=== PATIENT | male | born 1950 | race Two or more races ===

== ENCOUNTER 2021-02-09 12:39 | Inpatient (IN) | payer MEDICARE, OTHER ==
[~2021-02-09] VITALS: Ht 175.3 cm; Wt 96.2 kg
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
[2021-02-09 14:08] LABS: BASOPHILS % (AUTO) 0.2 % (0.0-2.0); HEMATOCRIT 40 % (39-51); LYMPHOCYTES # (AUTO) 0.6 K/uL (0.8-4.8); LYMPHOCYTES % (AUTO) 6.4 % (20.0-44.0); MEAN CORPUSCULAR HGB CONC 33 g/dl (31.0-36.0); MEAN CORPUSCULAR VOLUME 92 fL (80-96); MONOCYTES # (AUTO) 0.5 K/uL (0.1-1.30); MONOCYTES % (AUTO) 5.1 % (2.0-12.0); NEUTROPHILS # (AUTO) 8.3 K/uL (1.8-8.9); NEUTROPHILS % (AUTO) 87.3 % (43.0-81.0); PLATELET COUNT (AUTO) 184 K/uL (150-450); RED BLOOD CELL COUNT(AUTO) 4.31 MIL/uL (4.5-6.0); WHITE BLOOD COUNT (AUTO) 9.5 K/uL (4.3-11.0)
--- NOTE | 2021-02-09 14:16 | NUR ---
CALLED YASHIRA FOR READ.
[2021-02-09 14:43] LABS: ALANINE AMINOTRANSFERASE 27 U/L (12-78); ALKALINE PHOSPHATASE 176 U/L (46-116); ASPARTATE AMINOTRANSFERASE 48 U/L (15-37); BILIRUBIN,DIRECT 0.2 mg/dL (0.0-0.2); BILIRUBIN,TOTAL 0.6 mg/dL (0.2-1.0); CALCIUM, SERUM 8.3 mg/dL (8.5-10.1); CARBON DIOXIDE 28 mmol/L (21-32); CHLORIDE 104 mmol/L (98-107); CREATININE 1.1 mg/dL (0.6-1.3); GLUCOSE 100 mg/dL (74-106); POTASSIUM 4.1 mmol/L (3.5-5.1); SODIUM SERUM 139 mmol/L (136-145); TOTAL PROTEIN, SERUM 6.5 g/dL (6.4-8.2); UREA NITROGEN, BLOOD 14 mg/dL (7-18)
[2021-02-09] MEDS ORDERED: SERT25TA PO (14:59)
[2021-02-09] MEDS ORDERED: TERA2CAP4 PO (14:59)
[2021-02-09] MEDS ORDERED: AMLO2.5T2 PO (14:59)
[2021-02-09] MEDS ORDERED: PANT40TA2 PO (14:59)
[2021-02-09] MEDS ORDERED: ZOLP5TAB2 PO (14:59)
[2021-02-09] MEDS ORDERED: METO25TA6 PO (14:59)
[2021-02-09] MEDS ORDERED: ALPR0.25 PO (14:59)
[2021-02-09] MEDS ORDERED: HYDR-4075 PO (14:59)
--- NOTE | 2021-02-09 15:06 | NUR ---
COVID TEST WAS COLLECTED AND SENT TO LAB.
--- NOTE | 2021-02-09 15:07 | NUR ---
CALLED PT [id number] [phone] TO DETERMINE IF PT IS ON BLOOD THINNERS. M
[2021-02-09] MEDS ORDERED: HYDR-3980 PO (15:20)
[2021-02-09] MEDS ORDERED: CHOL100062 PO (15:20)
[2021-02-09] MEDS ORDERED: LOSA100T31 PO (15:20)
[2021-02-09] MEDS ORDERED: FINA5TAB11 PO (15:20)
[2021-02-09] MEDS ORDERED: METO-358 PO (15:20)
[2021-02-09] MEDS ORDERED: TERA1CAP4 PO (15:20)
--- NOTE | 2021-02-09 15:26 | NUR ---
PT IS ON BLOOD THINNERS
--- NOTE | 2021-02-09 16:37 | NUR ---
RO[facility]
--- NOTE | 2021-02-09 16:41 | NUR ---
REPORT GIVEN TO NURSE PRIETO
[2021-02-09] MEDS ORDERED: ONDANSETRON HCL/PF 4 MG/2 ML VIAL IVP PRN (17:00)
[2021-02-09] MEDS ORDERED: MAGNESIUM HYDROXIDE 30 ML UDC PO PRN (17:00)
[2021-02-09] MEDS ORDERED: Z GUARD REMEDY 2 OZ OINT TP PRN (17:00)
[2021-02-09] MEDS ORDERED: MAG HYDROX/AL HYDROX/SIMETH 30 ML UDC PO PRN (17:00)
[2021-02-09] MEDS ORDERED: ACETAMINOPHEN 325 MG TABLET PO PRN (17:00)
[2021-02-09] MEDS ORDERED: ZOLPIDEM TARTRATE 5 MG TABLET PO PRN (17:00)
--- NOTE | 2021-02-09 17:20 | NUR ---
TELE NURSE NOTE PATIENT RECEIVED FROM ER BY NURSE AT AROUND 1715. PATIENT CAME ON A GURNEY TRANSFERRED TO BED. PATIENT IS ALERT AND ORIENTED X 1-2. PATIENT WITH REGULAR AND UNLABORED BREATHING ON ROOM AIR, TOLERATED WELL. NO SIGN AND SYMPTOMS OF DISTRESS NOTED. NO COMPLAIN OF PAIN OR DISCOMFORT AT THIS TIME. PATIENT IS ON BED REST. PATIENT NOTED TO HAVE WEAKNESS ON RIGHT SIDE OF THE BODY WITH NO SENSORY DEFICIT. IV ACCESS ON LEFT AC G20 ON SALINE LOCK. ACCESS PATENT AND INTACT. PATIENT IS ON TELE MONITOR READING AT SINUS RHYTHYM WITH HR ON 80'S. SAFETY PRECAUTIONS ENFORCED WITH BED LOCKED AND AT LOWEST POSITION SIDERAILS UP. CALL LIGHT WITHIN REACH AT ALL TIMES. WILL CONTINUE TO MONITOR.
[2021-02-09 17:52] VITALS: BP 128/76
--- NOTE | 2021-02-09 18:30 | NUR ---
CONCERT PROMOTER NOTE RECEIVED A CALL FROM DR. BEAN, PATIENT FOR MRI WITHOUT CONTRAST. PATIENT UNABLE TO SIGN AT THIS TIME BUT CONSENTED TO PROCEDURE AND WITNESSED BY NURSE BIGGS. PATIENT IS A POOR HISTORIAN AND MD IS AWARE. WILL CONTINUE TO MONITOR PATIENT.
--- NOTE | 2021-02-09 18:45 | NUR ---
TELE CLOSING NURSE NOTE PATIENT IS ALERT AND ORIENTED X 1-2. PATIENT WITH REGULAR AND UNLABORED BREATHING ON ROOM AIR, TOLERATED WELL. NO SIGN AND SYMPTOMS OF DISTRESS NOTED. NO COMPLAIN OF PAIN OR DISCOMFORT AT THIS TIME. PATIENT IS ON BED REST. PATIENT NOTED TO HAVE WEAKNESS ON RIGHT SIDE OF THE BODY WITH NO SENSORY DEFICIT. IV ACCESS ON LEFT AC G20 ON SALINE LOCK. ACCESS PATENT AND INTACT. PATIENT IS ON TELE MONITOR STILL READING AT SINUS RHYTHYM WITH HR ON 80'S. SAFETY PRECAUTIONS ENFORCED WITH BED LOCKED AND AT LOWEST POSITION SIDERAILS UP. CALL LIGHT WITHIN REACH AT ALL TIMES. WILL ENDORSE TO NEXT SHIFT FOR CONTINUITY OF CARE.
--- NOTE | 2021-02-09 19:34 | NUR ---
ANATOMIC PATHOLOGIST OPENING NOTES: RECEIVED PATIENT SLEEP IN BED COMFORTABLY,BED IN LOW POSITION CALL LIGHTS WITHIN REACH, NO COMPLAIN OF PAIN AND DISCOMFORT AT THIS TIME, PATIENT ON RA NO SOB OR ANY RESP DISTRESS OBSERVED, ON TELE MONITORING RS-66, WITH IV LINE AT LAC#20 SL, PATIENT KEPT CLEAN AND DRY, ALL NEEDS MET, WILL CONTINUE TO MONITOR.
[2021-02-09 20:05] VITALS: BP 134/73
[2021-02-10 01:10] VITALS: BP 156/82
[2021-02-10 04:37] VITALS: BP 142/70
[2021-02-10 06:38] LABS: BASOPHILS % (AUTO) 0.5 % (0.0-2.0); EOSINOPHILS % (AUTO) 2.2 % (0.0-6.0); HEMATOCRIT 38 % (39-51); HEMOGLOBIN 12.8 g/dL (13.5-17.5); LYMPHOCYTES # (AUTO) 0.7 K/uL (0.8-4.8); LYMPHOCYTES % (AUTO) 10.2 % (20.0-44.0); MEAN CORPUSCULAR HGB CONC 34 g/dl (31.0-36.0); MEAN CORPUSCULAR VOLUME 92 fL (80-96); MONOCYTES # (AUTO) 0.6 K/uL (0.1-1.30); MONOCYTES % (AUTO) 8.1 % (2.0-12.0); NEUTROPHILS # (AUTO) 5.4 K/uL (1.8-8.9); PLATELET COUNT (AUTO) 173 K/uL (150-450); RED BLOOD CELL COUNT(AUTO) 4.17 MIL/uL (4.5-6.0); WHITE BLOOD COUNT (AUTO) 6.9 K/uL (4.3-11.0)
[2021-02-10 06:43] LABS: ALBUMIN 2.7 g/dL (3.4-5.0); BILIRUBIN,TOTAL 0.8 mg/dL (0.2-1.0); CALCIUM, SERUM 8.1 mg/dL (8.5-10.1); MAGNESIUM 1.8 mg/dL (1.8-2.4); PHOSPHORUS 3.6 mg/dL (2.5-4.9); POTASSIUM 3.7 mmol/L (3.5-5.1); TOTAL PROTEIN, SERUM 6.2 g/dL (6.4-8.2)
--- NOTE | 2021-02-10 06:49 | NUR ---
UX SPECIALIST CLOSING NOTES: PATIENT SLEEP IN BED COMFORTABLY, BED IN LOW POSITION, CALL LIGHTS WITHIN REACH, NO COMPLAIN OF PAIN AND DISCOMFORT AT THIS TIME, PATIENT IS CONTINENT USING URINAL WITH IV LINE AT LAC #20 SL, A/O X1-2 WITH RIGHT SIDED HEMAPHERESIS, PATIENT ON TELE MONITORING SR-70, ON RA @98 PERCENT SATURATION, NO SOB WAS OBSERVED, PATIENT KEPT CLEAN AND DRY, ALL NEEDS MET, ENDORSE TO INCOMING SHIFT.
--- NOTE | 2021-02-10 07:22 | NUR ---
RN NOTES RECEIVED PATIENT IN BED, RESTING COMFORTABLY, DENIES ANY OF PAIN OR DISCOMFORT AT THIS TIME, PATIENT ON RA, NO SOB OR ANY RESPIRATORY DISTRESS OBSERVED, ON TELE MONITORING SR-65, WITH IV LINE AT LAC#20 SL, SAFETY MEASURES IN PLACE. BED ON ITS LOWEST AND LOCKED POSITION, CALL LIGHT PLACED WITHIN EASY REACH, SIDE RAILS UP, BED ALARM ON. WILL CONTINUE TO MONITOR.
[2021-02-10 08:00] VITALS: BP 137/90
[2021-02-10] MEDS: SERTRALINE HCL 25 MG TABLET PO SCH ×2 (08:33→09:00)
[2021-02-10] MEDS: AMLODIPINE BESYLATE 2.5 MG TABLET PO SCH (08:33)
[2021-02-10] MEDS: FINASTERIDE (5 MG) 5 MG TABLET PO SCH (08:33)
[2021-02-10] MEDS: METOPROLOL SUCCINATE 50 MG TAB.SR.24H PO SCH ×2 (08:34→21:22)
[2021-02-10] MEDS ORDERED: LOSARTAN POTASSIUM 50 MG TABLET PO SCH (09:00)
--- NOTE | 2021-02-10 09:00 | NUR ---
RN NOTES PATIENT REFUSED TO TAKE ZOLOFT THIS MORNING, MED OPENED ALREADY. PATIENT STATED, HE TAKES IT AT NIGHT/BEDTIME. MEDICATION WASTED.
[2021-02-10] MEDS: VALSARTAN 80 MG TABLET PO SCH (11:29)
--- NOTE | 2021-02-10 15:47 | NUR ---
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 EXPLAINED THAT WE CAN ASK THE DR TO GIVE HIM MEDICATION TO RELAX BUT STILL REFUSED. DR POLK MADE AWARE WITH ORDER TO REPEAT CT OF BRAIN/HEAD W/O CONTRAST.
[2021-02-10 16:00] VITALS: BP 122/50
--- NOTE | 2021-02-10 16:20 | NUR ---
RN NOTES PT HAD CT OF BRAIN/HEAD W/O CONTRAST, AWAITING FOR RESULTS.
--- NOTE | 2021-02-10 18:38 | NUR ---
RN NOTES PATIENT ON BED, RESTING COMFORTABLY, NO COMPLAINTS OF PAIN OR DISCOMFORT AT THIS TIME, PATIENT ON ROOM AIR, SATURATING @96%, RESPIRATIONS EVEN AND UNLABORED, NO SOB OR ANY RESPIRATORY DISTRESS NOTED. WITH IV ACCESS ON LAC #20G SL, PATENT AND INTACT. DISCHARGED FROM TELE. SAFETY MEASURES IN PLACE. BED ON ITS LOWEST AND LOCKED POSITION, CALL LIGHT PLACED WITHIN EASY REACH, SIDE RAILS X2 UP, BED ALARM ON. WILL ENDORSE TO NEXT SHIFT.
--- NOTE | 2021-02-10 19:15 | NUR ---
MS/RN OPENING NOTES RECEIVED PT AWAKE IN BED, WATCHING TV. ABLE TO VERBALIZE NEEDS. HE DENIES PAIN/DISCOMFORT AT THIS TIME. RESPIRATIONS EVEN/UNLABORED. IV SITE: L-AC #20G INTACT/PATENT/FLUSHES WELL. PT USES URINAL TO VOID. REMINDED TO USE CALL LIGHT FOR ASSISTANCE IF GOING TO BR. PT VERBALIZED UNDERSTANDING. SAFETY MEASURES IN PLACE, BED IN LOWEST LOCKED POSITION, S/R UP X2, CALL LIGHT AND TABLE WITHIN EASY REACH. WILL CONT TO MONITOR.
[2021-02-10 20:00] VITALS: BP 138/79
[2021-02-10] MEDS ORDERED: TERAZOSIN HCL 1 MG CAPSULE PO SCH (22:00)
[2021-02-10] MEDS ORDERED: SERTRALINE HCL 25 MG TABLET PO SCH (22:00)
[2021-02-11 06:24] LABS: BASOPHILS % (AUTO) 0.5 % (0.0-2.0); EOSINOPHILS % (AUTO) 2.7 % (0.0-6.0); HEMATOCRIT 37 % (39-51); HEMOGLOBIN 12.4 g/dL (13.5-17.5); LYMPHOCYTES # (AUTO) 1.1 K/uL (0.8-4.8); LYMPHOCYTES % (AUTO) 18.4 % (20.0-44.0); MEAN CORPUSCULAR HGB CONC 34 g/dl (31.0-36.0); MEAN CORPUSCULAR VOLUME 92 fL (80-96); MONOCYTES # (AUTO) 0.6 K/uL (0.1-1.30); MONOCYTES % (AUTO) 9.1 % (2.0-12.0); NEUTROPHILS # (AUTO) 4.2 K/uL (1.8-8.9); NEUTROPHILS % (AUTO) 69.3 % (43.0-81.0); PLATELET COUNT (AUTO) 184 K/uL (150-450); RED BLOOD CELL COUNT(AUTO) 4.03 MIL/uL (4.5-6.0); WHITE BLOOD COUNT (AUTO) 6.1 K/uL (4.3-11.0)
--- NOTE | 2021-02-11 06:52 | NUR ---
MS/RN CLOSING NOTES PT RESTING IN BED, EASILY AROUSABLE TO STIMULI. DENIES PAIN/SOB. RESPIRATIONS EVEN/UNLABORED. SLEPT WELL DURING THE NIGHT. NO ACUTE DISTRESS NOTED. SAFETY MEASURES MAINTAINED.
--- NOTE | 2021-02-11 07:31 | NUR ---
MS RN OPENING NOTES RECEIVED PT AWAKE IN BED, A/O 3-4 ABLE TO VERBALIZE NEEDS. PT. DENIES OF PAIN/DISCOMFORT AT THIS TIME. BREATHING EVEN AND UNLABORED. IV SITE: L-AC #20G INTACT/PATENT/FLUSHES WELL. PT USES URINAL TO VOID. REMINDED PT. TO USE CALL LIGHT FOR ASSISTANCE IF GOING TO BR. PT VERBALIZED UNDERSTANDING. SAFETY MEASURES IN PLACE, BED IN LOWEST LOCKED POSITION, S/R UP X2, CALL LIGHT AND TABLE WITHIN EASY REACH. WILL CONT TO MONITOR PT. ACCDGLY.
[2021-02-11 07:38] LABS: CALCIUM, SERUM 8.3 mg/dL (8.5-10.1); PHOSPHORUS 3.6 mg/dL (2.5-4.9); POTASSIUM 3.6 mmol/L (3.5-5.1)
[2021-02-11 08:00] VITALS: BP 148/80
[2021-02-11] MEDS: FINASTERIDE (5 MG) 5 MG TABLET PO SCH (08:32)
[2021-02-11] MEDS: METOPROLOL SUCCINATE 50 MG TAB.SR.24H PO SCH (08:35)
[2021-02-11 08:36] VITALS: BP 148/80
[2021-02-11] MEDS: AMLODIPINE BESYLATE 2.5 MG TABLET PO SCH (08:36)
[2021-02-11] MEDS: VALSARTAN 80 MG TABLET PO SCH (08:36)
--- NOTE | 2021-02-11 18:35 | NUR ---
MS RN CLOSING NOTES PATIENT IN BED, ALERT/ORIENTED X4 AND NOT IN DISTRESS NOTED. BREATHING EVEN AND UNLABORED. PT. WITH PICC LINE ON THE GEORGE WITH 3 LUMEN INTACT. PT. WITH RIGHT FEMORAL HD CATH, INTACT. NO SIGNS OF BLEEDING WITH CLEAN DRY DRESSING IN PLACE. PT. WITH INDWELLING SILVA CATH(ANURIC). PATIENT ON SAFETY PRECAUTIONS. BED ON LOWEST LOCKED POSITION. CALL LIGHT AND BEDSIDE TABLE WITHIN EASY REACH. WILL ENDORSED PT. TO DRUM STOCK CLERK NURSE FOR CONTINUITY OF CARE.
--- NOTE | 2021-02-11 19:13 | NUR ---
RN MS DISCHARGE NOTES PATIENT DISCHARGED TO [facility]. PATIENT WAS PICKED UP BY 2 EMT'S OF [facility]. IN NO APPARENT DISTRESS NOTED, BREATHING EVEN AND UNLABORED. PT. STABLE, VITAL SIGNS W/IN NORMAL RANGE. DISCHARGE INSTRUCTION GIVEN TO PATIENT AND VERBALIZED UNDERSTANDING. IV ACCESS REMOVED AND PLACED DRY DRESSING. REPORT GIVEN TO NURSE LAYLONNIE OF [facility]
== END 2021-02-11 19:20 | DRG 65 ==
LOC: ER 12:42 → TELE 16:43 → MED 02-10 11:11
PROVIDERS: ADMIT Hospitalist; ATTEND Registered Nurse
DX: I63.9 Cerebral infarction, unspecified (principal); I69.351 Hemiplegia and hemiparesis following cerebral infarction affecting right dominant side; D68.59 Other primary thrombophilia; I10 Essential (primary) hypertension; F32.A Depression, unspecified; F41.9 Anxiety disorder, unspecified; Z79.899 Other long term (current) drug therapy; Z85.528 Personal history of other malignant neoplasm of kidney; Z90.5 Acquired absence of kidney; Z98.890 Other specified postprocedural states; R26.9 Unspecified abnormalities of gait and mobility; F40.240 Claustrophobia; E88.09 Other disorders of plasma-protein metabolism, not elsewhere classified; R29.704 NIHSS score 4
CPT/HCPCS: 36415; 70450-TC; 71045-TC; 80048-TC; 80053-TC; 80061-TC; 80076-TC; 83605-TC; 83735-TC; 84100-TC; 84484-TC; 85025-TC; 85610-TC; 85730-TC; 87040-TC; 87081-TC; 93307-TC; 97116-TC; 97530-TC; C9803; G0378